=== PATIENT | female | born 1935 | race Caucasian/White ===

== ENCOUNTER → 2016-11-28 | Outpatient (CLI) | payer OTHER | END | disposition home or self-care (01) | LOC: C.PATHSPEC 14:29 | PROVIDERS: ATTEND Dermatology | DX: L82.1 Other seborrheic keratosis (principal); D18.00 Hemangioma unspecified site ==

== ENCOUNTER → 2016-11-28 | Outpatient (CLI) | payer OTHER ==
[2016-11-28 18:01] LABS: BASO % 0.5 %; BASO ABS # 0.02 K/uL (0-0.2); COMPLETE YES; EOS % 0.2 %; HEMATOCRIT 39.6 % (37-47); IG% 0.2 %; MEAN CELL VOLUME 94.7 fL (80-100); MEAN CORPUSCULAR HEMOGLOBIN 32.5 pg (25-34); MEAN CORPUSCULAR HGB CONC 34.3 g/dl (32-36); MEAN PLATELET VOLUME 10.4 fL (7.4-10.4); MONO % 17.3 %; NEUT % 46.8 %; PLATELET COUNT 142 K/uL (130-400); RED BLOOD COUNT 4.18 M/uL (4.2-5.4); WHITE BLOOD COUNT 4.28 K/uL (4.8-10.8)
== END | disposition home or self-care (01) ==
LOC: C.LAB1850 16:22
PROVIDERS: ATTEND Dermatology
DX: R58 Hemorrhage, not elsewhere classified (principal); L82.1 Other seborrheic keratosis; D18.00 Hemangioma unspecified site